=== PATIENT | male | born 1980 | race Two or more races ===

== ENCOUNTER 2019-11-03 22:00 | Emergency (ER) | payer OTHER ==
[~2019-11-03] VITALS: Ht 188 cm; Wt 116.0 kg
--- NOTE | 2019-11-03 22:08 | NUR ---
NOT IN LOBBY
[2019-11-03] MEDS ORDERED: ONDANSETRON 2MG/ML, 2ML ONE (23:22)
[2019-11-03] MEDS ORDERED: HYDROmorphone 1 MG/ML, 1ML INJ ONE (23:22)
[2019-11-03] MEDS ORDERED: LIDOCAINE-MPF 1%, 5ML ONE (23:23)
[2019-11-03] MEDS ORDERED: LIDOCAINE-MPF 1%, 5ML INFIL ONE (23:30)
[2019-11-03] MEDS ORDERED: DIPH,PERTUSS(ACELL),TET VAC/PF 0.5 ML IM-VACC ONE ×2 (23:30)
--- NOTE | 2019-11-03 23:42 | NUR ---
Pt slightly intoxicated tongiht and lost his step on electric escalator and caused his toe to get caught in the machine creating a laceration/avulsion injury to the bottom of his left big toe. Pt wound irrigated and pt given teatnus booster.
[2019-11-04 00:02] VITALS: BP 126/84
--- NOTE | 2019-11-04 00:03 | NUR ---
Pt more awake and alert, given h20
[2019-11-04] MEDS ORDERED: NEOSPORIN OINT. PKT 1 PACKET ONE (00:31)
--- NOTE | 2019-11-04 00:33 | NUR ---
Patient/Caregiver given discharge instructions and they have confirmed that they understand the instructions. Patient ambulatory with steady gait. Pt dc with who will be a safe ride home.
== END 2019-11-04 00:35 | disposition home or self-care (01) ==
LOC: ED 22:30
DX: S91.112A Laceration without foreign body of left great toe without damage to nail, initial encounter (principal); F10.120 Alcohol abuse with intoxication, uncomplicated; W10.0XXA Fall (on)(from) escalator, initial encounter; Y93.89 Activity, other specified; Y92.59 Other trade areas as the place of occurrence of the external cause; Y99.8 Other external cause status; Y90.9 Presence of alcohol in blood, level not specified
CPT/HCPCS: 12042; 90471; 90715; 99284